=== PATIENT | female | born 1975 | race Caucasian/White ===

== ENCOUNTER 2022-11-07 05:17 | Inpatient (IN) | payer BC ==
[~2022-11-07] VITALS: Ht 165.1 cm; Wt 75.0 kg
[2022-11-07] MEDS ORDERED: ketorolac trometh. 30mg/ml inj. IV STA (05:35)
[2022-11-07] MEDS ORDERED: normal saline 1000ML IV soln IVB ONE (05:40)
[2022-11-07 07:01] LABS: BASOPHILS # (AUTO) 0.1 X10'3 (0-0.2); BASOPHILS % (AUTO) 0.5 % (0-1); EOSINOPHILS # (AUTO) 0.1 X10'3 (0-0.9); EOSINOPHILS % (AUTO) 0.9 % (0-6); HEMATOCRIT 39.9 % (35.0-45.0); HEMOGLOBIN 12.9 g/dl (12.0-16.0); LYMPHOCYTES # (AUTO) 2.5 X10'3 (1.1-4.8); LYMPHOCYTES % (AUTO) 16.1 % (21-51); MEAN CORPUSCULAR HEMOGLOBIN 30.8 PG (27.0-31.0); MEAN CORPUSCULAR HGB CONC 32.4 g/dL (33.0-36.5); MEAN PLATELET VOLUME 7.7 FL (7.4-10.4); MONOCYTES # (AUTO) 2.5 X10'3 (0-0.9); MONOCYTES % (AUTO) 15.6 % (2-12); NEUTROPHILS # (AUTO) 10.5 X10'3 (1.8-7.7); NEUTROPHILS % (AUTO) 66.9 % (42-75); PLATELET COUNT 370 X10'3 (140-440); RED BLOOD COUNT 4.19 X10'6 (4.20-5.60); RED CELL DISTRIBUTION WIDTH 13.1 % (11.5-14.5); WHITE BLOOD COUNT 15.7 X10'3 (4.5-11.0)
[2022-11-07 07:20] LABS: ALANINE AMINOTRANSFERASE 15 U/L (12-78); ALBUMIN 3.3 G/DL (3.4-5.0); ALBUMIN/GLOBULIN RATIO 1.1 (1.1-1.5); ALKALINE PHOSPHATASE 73 IU/L (46-116); ANION GAP 6 (8-16); ASPARTATE AMINO TRANSFERASE 15 U/L (10-37); BILIRUBIN,TOTAL 0.4 MG/DL (0.1-1.0); BLOOD UREA NITROGEN 9 MG/DL (7-18); BUN/CREATININE RATIO 8.8 (10.0-20.0); CALCIUM 8.1 MG/DL (8.5-10.1); CHLORIDE 108 MMOL/L (99-107); CREATININE 1.02 MG/DL (0.40-0.90); GLUCOSE 101 MG/DL (70-104); LIPASE 59 U/L (73-393); SODIUM 139 MMOL/L (135-145); TOTAL CARBON DIOXIDE 25.3 MMOL/L (24-32); TOTAL PROTEIN 6.2 G/DL (6.4-8.2); eGFR 59 ML/MIN
[2022-11-07 07:38] LABS: PLATELET ESTIMATE NORMAL; TOTAL CELLS COUNTED 100
[2022-11-07 08:44] LABS: URINE HCG NEGATIVE (NEG)
[2022-11-07 08:45] LABS: CLARITY,URINE SLIGHTLY CLOUDY (Clear); COLOR,URINE YELLOW (Yellow); GLUCOSE, URINE NEGATIVE (Neg); KETONES,URINE NEGATIVE (Neg); LEUKOCYTE ESTERASE ,URINE NEGATIVE (Neg); NITRITES, URINE NEGATIVE (Neg); OCCULT BLOOD,URINE SMALL (Neg); PROTEIN,URINE NEGATIVE (Neg); UROBILINOGEN,URINE 0.2 E.U/dL (0.2-1.0)
[2022-11-07 08:57] LABS: UA COLLECTION TYPE VOIDED
[2022-11-07 08:59] LABS: MUCUS STRANDS MODERATE /LPF (Neg); SQUAMOUS EPITHELIAL CELL,UR MODERATE /LPF (FEW)
[2022-11-07 09:00] LABS: BACTERIA,URINE FEW /HPF (Neg); HYALINE CASTS 0-3 /LPF (NEGATIVE); WBC,URINE 0-4 /HPF (0-4)
[2022-11-07] MEDS ORDERED: normal saline 1000ml 1,000 ML IV ONE (09:00)
[2022-11-07] MEDS ORDERED: fentaNYL/PF 50MCG/1 ML 2ML syringe IV ONE ×2 (09:05→15:35)
[2022-11-07] MEDS ORDERED: ondansetron/PF 4mg/2ml inj IV ONE (09:05)
[2022-11-07] MEDS ORDERED: potassium Cl 20 mEq SR tablet PO PRN ×2 (10:05)
[2022-11-07] MEDS ORDERED: potassium Cl 40MEQ/1/2NS 520ml 520 ML IV PRN (10:05)
[2022-11-07] MEDS ORDERED: magnesium Cl slow-release 64mg tablet PO PRN (10:05)
[2022-11-07] MEDS ORDERED: magnesium 4gm in 100ml NS 100 ML IV PRN (10:05)
[2022-11-07] MEDS ORDERED: magnesium 2GM in 50ml NS 50 ML IV PRN (10:05)
[2022-11-07] MEDS: normal saline 1000ml 1,000 ML IV SCH ×2 (10:05→20:05)
[2022-11-07] MEDS ORDERED: acetaminophen 325mg tablet PO PRN (10:05)
[2022-11-07] MEDS ORDERED: SYN0.088T PO (11:33)
[2022-11-07] MEDS ORDERED: LEVO125T8 PO (12:56)
[2022-11-07] MEDS ORDERED: iohexol 300mg/ml 100ml inj. ONE (13:12)
[2022-11-07] MEDS: ketorolac tromethamine 15mg/ml inj. IV PRN (17:56)
[2022-11-07 17:57] VITALS: BP 125/78
[2022-11-07] MEDS: K and/or MAG REPLACEMENT MC SCH (20:00)
[2022-11-07 22:00] VITALS: BP 101/65
[2022-11-08] VITALS (19 sets, daily range): BP systolic 100–124; BP diastolic 55–83
[2022-11-08] MEDS: ketorolac tromethamine 15mg/ml inj. IV PRN ×3 (01:20→20:49)
[2022-11-08] MEDS: normal saline 1000ml 1,000 ML IV SCH ×3 (06:05→19:14)
[2022-11-08 06:10] LABS: ANION GAP 4 (8-16); BLOOD UREA NITROGEN 9 MG/DL (7-18); BUN/CREATININE RATIO 8.4 (10.0-20.0); CALCIUM 8.1 MG/DL (8.5-10.1); CHLORIDE 109 MMOL/L (99-107); CREATININE 1.07 MG/DL (0.40-0.90); GLUCOSE 103 MG/DL (70-104); POTASSIUM 3.9 MMOL/L (3.5-5.1); SODIUM 140 MMOL/L (135-145); TOTAL CARBON DIOXIDE 27.2 MMOL/L (24-32); eGFR 55 ML/MIN
[2022-11-08 06:11] LABS: BASOPHILS # (AUTO) 0.1 X10'3 (0-0.2); BASOPHILS % (AUTO) 0.6 % (0-1); EOSINOPHILS # (AUTO) 0.2 X10'3 (0-0.9); EOSINOPHILS % (AUTO) 1.4 % (0-6); HEMOGLOBIN 12.4 g/dl (12.0-16.0); MEAN CORPUSCULAR HEMOGLOBIN 31.1 PG (27.0-31.0); MEAN CORPUSCULAR HGB CONC 32.7 g/dL (33.0-36.5); MEAN CORPUSCULAR VOLUME 95.2 FL (78-98); MEAN PLATELET VOLUME 8.2 FL (7.4-10.4); MONOCYTES % (AUTO) 15.6 % (2-12); NEUTROPHILS # (AUTO) 8.5 X10'3 (1.8-7.7); NEUTROPHILS % (AUTO) 66.4 % (42-75); PLATELET COUNT 353 X10'3 (140-440); RED BLOOD COUNT 3.99 X10'6 (4.20-5.60); RED CELL DISTRIBUTION WIDTH 13.3 % (11.5-14.5); WHITE BLOOD COUNT 12.8 X10'3 (4.5-11.0)
[2022-11-08] MEDS ORDERED: midazolam 1 mg/ML 2ml injection ONE (07:07)
[2022-11-08] MEDS ORDERED: LIDOcaine 2% (20mg/ml) 5ml vial ONE (07:08)
[2022-11-08] MEDS ORDERED: propofol inj 20 ML IV ONE (07:08)
[2022-11-08] MEDS ORDERED: ondansetron/PF 4mg/2ml inj ONE (07:08)
[2022-11-08] MEDS ORDERED: fentaNYL/PF 50MCG/1 ML 2ML syringe ONE (07:08)
[2022-11-08] MEDS ORDERED: dexamethasone sod phosphate 4mg/ml inj. ONE (07:08)
[2022-11-08] MEDS ORDERED: hydrALAZINE 20mg/ml inj. IV PRN (07:15)
[2022-11-08] MEDS ORDERED: fentaNYL/PF 50MCG/1 ML 2ML syringe IV PRN ×2 (07:15)
[2022-11-08] MEDS ORDERED: meperidine/PF 25mg/ml syringe IV PRN ×2 (07:15)
[2022-11-08] MEDS ORDERED: ringers solution, lacted 1,000 ML IV SCH (07:15)
[2022-11-08] MEDS ORDERED: ondansetron/PF 4mg/2ml inj IV PRN (07:15)
[2022-11-08] MEDS ORDERED: labetalol 20mg/4ml (5mg/ml) syringe IV PRN (07:15)
[2022-11-08] MEDS ORDERED: iohexol 300 MG/1 ML 50ml polymer ONE (07:20)
[2022-11-08] MEDS ORDERED: ceFAZolin/D5W- 1GM premix 50 ML IV ONE (07:25)
[2022-11-08] MEDS: K and/or MAG REPLACEMENT MC SCH ×2 (08:00→19:51)
[2022-11-08] MEDS ORDERED: ceFAZolin 1000mg inj ONE ×2 (08:01)
[2022-11-08] MEDS ORDERED: acetaminophen 1,000mg/100ml IV 100 ML IV ONE (08:55)
[2022-11-08] MEDS: CefTRIAXone/D5W-Rocephin 1gm 50 ML IV SCH (09:35)
[2022-11-08] MEDS ORDERED: acetaminophen 1,000mg/100ml IV 100 ML IV SCH (14:00)
[2022-11-08] MEDS ORDERED: phenazopyridine 100mg tablet PO ONE (14:45)
[2022-11-08] MEDS: phenazopyridine 100mg tablet PO SCH (17:49)
[2022-11-08] MEDS ORDERED: phenazopyridine 100mg tablet PO SCH (18:00)
[2022-11-08] MEDS: traMADol 50MG tablet PO PRN (19:13)
[2022-11-09] MEDS: traMADol 50MG tablet PO PRN (01:09)
[2022-11-09 01:57] VITALS: BP 99/55
[2022-11-09] MEDS: normal saline 1000ml 1,000 ML IV SCH (03:27)
[2022-11-09 06:00] VITALS: BP 105/62
[2022-11-09 06:28] LABS: BASOPHILS # (AUTO) 0.1 X10'3 (0-0.2); BASOPHILS % (AUTO) 0.4 % (0-1); EOSINOPHILS % (AUTO) 0.2 % (0-6); HEMATOCRIT 37.3 % (35.0-45.0); HEMOGLOBIN 12.2 g/dl (12.0-16.0); LYMPHOCYTES # (AUTO) 2.7 X10'3 (1.1-4.8); LYMPHOCYTES % (AUTO) 14.2 % (21-51); MEAN CORPUSCULAR HEMOGLOBIN 30.9 PG (27.0-31.0); MEAN CORPUSCULAR HGB CONC 32.6 g/dL (33.0-36.5); MEAN CORPUSCULAR VOLUME 94.8 FL (78-98); MEAN PLATELET VOLUME 8.6 FL (7.4-10.4); MONOCYTES # (AUTO) 2.3 X10'3 (0-0.9); MONOCYTES % (AUTO) 12.1 % (2-12); NEUTROPHILS # (AUTO) 14.1 X10'3 (1.8-7.7); NEUTROPHILS % (AUTO) 73.1 % (42-75); PLATELET COUNT 375 X10'3 (140-440); RED BLOOD COUNT 3.94 X10'6 (4.20-5.60); RED CELL DISTRIBUTION WIDTH 13.2 % (11.5-14.5); WHITE BLOOD COUNT 19.3 X10'3 (4.5-11.0)
[2022-11-09 06:32] LABS: ALBUMIN 2.9 G/DL (3.4-5.0); ANION GAP 8 (8-16); BLOOD UREA NITROGEN 13 MG/DL (7-18); BUN/CREATININE RATIO 16.5 (10.0-20.0); CALCIUM 8.3 MG/DL (8.5-10.1); CHLORIDE 108 MMOL/L (99-107); CREATININE 0.79 MG/DL (0.40-0.90); GLUCOSE 107 MG/DL (70-104); MAGNESIUM 1.7 MG/DL (1.5-2.4); POTASSIUM 3.4 MMOL/L (3.5-5.1); SODIUM 140 MMOL/L (135-145); TOTAL CARBON DIOXIDE 24.5 MMOL/L (24-32); eGFR 79 ML/MIN
[2022-11-09] MEDS: phenazopyridine 100mg tablet PO SCH ×2 (08:17→12:55)
[2022-11-09] MEDS: CefTRIAXone/D5W-Rocephin 1gm 50 ML IV SCH (08:19)
[2022-11-09] MEDS: K and/or MAG REPLACEMENT MC SCH (08:20)
[2022-11-09 10:00] VITALS: BP 109/71
[2022-11-09] MEDS ORDERED: levoTHYROXINE 125mcg tablet PO SCH (10:30)
[2022-11-09] MEDS ORDERED: magnesium hydroxide 30ml (MOM) UD suspension PO ONE (11:15)
[2022-11-09] MEDS ORDERED: PHEN-786 PO (12:00)
[2022-11-09] MEDS ORDERED: AMOX-419 PO (12:01)
== END 2022-11-09 14:50 | disposition home or self-care (01) | DRG 661 ==
LOC: ER 05:19 → CANBEDREQ 09:18 → UNDOADMOB 10:04 → ED HOLD 10:04 → INTOOBSV 10:04 → OBSVTOIN 10:04 → ED HOLD 17:46 → ORTHO 4S 17:46 → OBSVTOIN 11-09 09:00
PROVIDERS: ADMIT Internal Medicine; ATTEND Internal Medicine
PROC: BT1F1ZZ Fluoroscopy of Left Kidney, Ureter and Bladder using Low Osmolar Contrast (ICD-10-PCS; 2022-11-08)
PROC: 0T778DZ Dilation of Left Ureter with Intraluminal Device, Via Natural or Artificial Opening Endoscopic (ICD-10-PCS; principal; 2022-11-08 07:40)
DX: N13.6 Pyonephrosis (principal); E03.9 Hypothyroidism, unspecified; D72.829 Elevated white blood cell count, unspecified; Z87.442 Personal history of urinary calculi
CPT/HCPCS: 99285; Z7506; 36415; 76000; 80048; 80053; 81001; 81025; 82948; 83690; 83735; 84145; 85007; 85025; 87081; A4618; C1769; C2617; G0378; J0131; J0690; J0696; J1100; J1885; J2250; J2405; J2704; J3010; J3490; J7030; Q9967